=== PATIENT | male | born 1965 | race Caucasian/White ===

== ENCOUNTER → 2023-04-27 | Outpatient (CLI) | payer BC ==
--- NOTE | 2023-04-27 08:56 | CT ---
EXAMINATION TYPE: High resolution CT chest DATE OF EXAM: 04/27/2023 COMPARISON: None HISTORY: 58-year-old male B91, J98.6, Sequelae poliomyelitis disorder diaphragm TECHNIQUE: High resolution CT chest in both supine and prone positioning per HRCT protocol. No contra st administered. Additional expiratory phase imaging performed. CT DLP: 1175.9mGycm. Automatic exposure control utilized for a dose reduction. FINDINGS: The heart is normal size without pericardial effusion. Three-vessel coronary artery calcifications. 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 Ectatic ascending aorta 3.8 cm. Conventional arch vessel b ranching anatomy. No thoracic lymphadenopathy by CT size criteria. Asymmetric elevation right hemidiaphragm with prominent patchy and bandlike opacities at the right ba se. There is moderate diffuse bronchial wall thickening but more extensive in the mid and lower lungs . Some scattered mild groundglass and reticular densities especially in the mid and lower lungs. Micheal tional reticular densities at the right greater than left apices. No honeycombing. No hong air trapping on expiratory views. Visualized upper abdomen shows 1.2 cm gallstone. IMPRESSION: 1. Asymmetric elevation right hemidiaphragm. Correlate with findings on sniff test. 2. Prominent focal right basilar opacities could represent large bandlike areas of atelectasis and sc arring. 3. Moderate bronchial wall thickening especially in the mid and lower lungs with scattered groundglas s and mild reticular density. Consider atypical infections, sequela of repeated aspiration, postinfec tious interstitial scarring, or interstitial pneumonitis (NSIP, DIP, or TEAM FOREMAN) as some differential con siderations. No honeycombing. 4. CAD with 3 vessel coronary artery calcifications.
--- NOTE | 2023-04-27 17:20 | FL ---
EXAMINATION TYPE: FL sniff test without CXR DATE OF EXAM: 04/27/2023 8:29 AM CLINICAL INDICATION:Male, 58 years old with history of B91 SEQUELAE POLIOMYELITIS; COMPARISON: Chest radiograph from TECHNIQUE: With the patient standing, fluoroscopy of the right and left hemidiaphragm was observed du ring normal resting respiration as well as deep inspiration, deep expiration, and "sniffing." Fluoroscopic time: 47 min Fluoroscopic images: 0 Radiographs taken: 5 DAP: Not reported [id number] FINDINGS: Marinator film demonstrates: no focal consolidation, pneumothorax, or pleural effusions. The cardiomedias tinal silhouette is within normal limits. There is elevation of the right hemidiaphragm. This is stab le and compared to previous chest radiograph. The left diaphragm contracts during inspiration. Both hemidiaphragms move together. Normal excursion is demonstrated of the left hemidiaphragm. The right diaphragm contracts during inspiration. Both hemidiaphragms move together. Normal excursion is demonstrated of the right hemidiaphragm. IMPRESSION: Normal sniff test.
== END | disposition home or self-care (01) ==
LOC: RADCTMAIN 07:54
PROVIDERS: ATTEND Internal Medicine Critical Care Medicine
DX: J98.4 Other disorders of lung (principal); J98.09 Other diseases of bronchus, not elsewhere classified; J98.6 Disorders of diaphragm; B91 Sequelae of poliomyelitis; R91.8 Other nonspecific abnormal finding of lung field; I25.10 Atherosclerotic heart disease of native coronary artery without angina pectoris
CPT/HCPCS: 71250; 76000

== ENCOUNTER 2023-05-08 12:38 | Day surgery (SDC) | payer BC ==
[2023-05-07 11:11] VITALS: BMI 30.6
[2023-05-08] MEDS: LACTATED RINGERS 1,000 ML IV SCH (13:10)
[2023-05-08] MEDS: ATROPINE SULFATE 0.4 MG/ML 1 ML VIAL IM ONE (13:14)
[2023-05-08 13:30] LABS: Glucose,Whole Blood 140 mg/dL (70-110)
[2023-05-08 13:33] VITALS: RESP 16; TEMP 97.3
[2023-05-08] MEDS ORDERED: PROPOFOL 10 MG/ML 20 ML VIAL IV ONE (13:40)
[2023-05-08] MEDS ORDERED: LIDOCAINE 1% INJ 10MG/ML (20 ML MDV) ONE (13:40)
[2023-05-08] MEDS ORDERED: fentaNYL (PF) 50 MCG/ML 2 ML AMP ONE (13:40)
[2023-05-08] MEDS ORDERED: PHENYLEPHRINE-0.9% NACL SYG 1,000 MCG/10 ML SYRINGE ONE (13:40)
[2023-05-08] MEDS ORDERED: SUCCINYLCHOLINE CHLORIDE 200 MG/10 ML VIAL IV ONE (13:40)
[2023-05-08 14:40] LABS: Glucose,Whole Blood 132 mg/dL (70-110)
--- NOTE | 2023-05-08 15:02 | XR ---
EXAMINATION TYPE: XR chest 1V portable DATE OF EXAM: 05/08/2023 Comparison: CT 04/27/2023 Clinical History: 58-year-old male POST BRONCH Findings: Heart normal size. Slightly low lung volumes and crowded vascular markings. Focal bibasilar opacities persist. No pneumothorax or pleural effusion. Impression: Ongoing focal patchy bibasilar opacities likely corresponding to densities and bronchiectasis seen on 04/27/2023 CT. No pneumothorax or pleural effusion.
[2023-05-08 15:55] VITALS: BP 138/92; PULSE 91
--- NOTE | 2023-05-08 19:55 | PCN ---
PROCEDURE NOTE PULMONARY/CRITICAL CARE PROCEDURE NOTE: PREOPERATIVE DIAGNOSIS: Interstitial lung disease. POSTOPERATIVE DIAGNOSIS: Interstitial lung disease, rule out cryptogenic organizing pneumonia versus atypical infection. PAPER GOODS MACHINE SET UP OPERATOR: Dr. Godfrey. FIRST OUTDOOR ADVENTURE LEADER: Dr. Anne Marie Nieto. There was informed consent and universal timeout. The patient's procedure took place in endoscopy room [address] [place] [address]. ANESTHESIA PROVIDED: General anesthesia. PROCEDURES PERFORMED: Bronchoscopy; airway examination; therapeutic lavage; BAL, right lower lobe; brushes, right lower lobe; and transbronchial biopsies, right lower lobe. DESCRIPTION OF PROCEDURE: After the patient was adequately sedated and under the effects of anesthesia, the bronchoscope was inserted through the bronchoscope adapter connected to the endotracheal tube. The bronchoscope was taken through the endotracheal tube down into the mid to distal trachea. Tracheal france was sharp. Minimal secretions were noted in the airways. The right and left mainstem were evaluated, as was right upper lobe and its 3 segments, right middle lobe and its 2 segments, right lower lobe and its 5 segments, left upper lobe proper and its 2 segments, lingula and its 2 segments, and left lower lobe and its 4 segments. There was minimal bronchitis. Airways were relatively normal-appearing. Minimal erythema and hyperemia. Some purulent secretions were noted. There was no dominant mass or tumor. Next, under fluoroscopic guidance, brushes were performed in the right lower lobe. Likewise, under fluoroscopic guidance, multiple transbronchial biopsies were performed in the right lower lobe. Of these, 7 to 8 good specimens were obtained. Finally, a formal BAL took place in the right lower lobe. The patient tolerated the procedure well. There was minimal bleeding. The patient was rock-solid stable throughout the procedure. There was no obvious pneumothorax on fluoroscopy. A formal chest x-ray will be ordered. If stable, the patient could be discharged. I did take the opportunity to speak to the patient's , Myranda, and told her that the patient was stable throughout the procedure, it would be at least 7 to 10 days before we had biopsy results. MMODL / IJN: [id number] /
[2023-05-08 23:17] LABS: Appearance,BF Cloudy (Clear); RBC, Body Fluid 5150 /UL (0-2000)
[2023-05-09 09:14] LABS: Nucleated Cells, Body Fluid 281 /UL
--- NOTE | 2023-05-09 15:16 | FL ---
EXAMINATION TYPE: FL bronchoscopy DATE OF EXAM: 05/08/2023 FLUOROSCOPY Right side bronch with biopsies 15 sec fl 0.47528 Gycm2 DAP One image submitted
== END 2023-05-08 15:56 | disposition home or self-care (01) ==
LOC: ORWHC2ENDO 12:38
PROVIDERS: ATTEND Internal Medicine Critical Care Medicine
DX: J84.9 Interstitial pulmonary disease, unspecified (principal); E78.5 Hyperlipidemia, unspecified; E11.9 Type 2 diabetes mellitus without complications; J45.909 Unspecified asthma, uncomplicated; J84.116 Cryptogenic organizing pneumonia; I10 Essential (primary) hypertension; L40.9 Psoriasis, unspecified; Z79.899 Other long term (current) drug therapy; Z79.51 Long term (current) use of inhaled steroids
CPT/HCPCS: 88104; 88305; 89050; 87070; 87205; 87116; 87102; 87206; 71045; 31628; 31623; 31624; J0330; J0461; J2001; J3010; J2704; J2371